=== PATIENT | male | born 1975 | race Caucasian/White ===

== ENCOUNTER 2018-01-19 17:32 | Emergency (ER) | payer MEDICAID ==
[~2018-01-19] VITALS: Ht 162.6 cm; Wt 80.7 kg
[2018-01-19 17:32] VITALS: BP 146/95
--- NOTE | 2018-01-19 17:43 | NUR ---
BBRA 97, PT WAS FOUND ASLEEP INSIDE HIS CAR IN THE MIDDLE OF THE TRAFFIC. BS-110. PT DENIES COMPLAINTS AT THIS TIME. H/O ESRD, DIALYSIS DUE TOMORROW. ASSISTED TO BED 14. PLACED ON CONT CARDIAC AND POX MONITORING. WILL CONT TO MONITOR
[2018-01-19] MEDS ORDERED: IV NS 0.9% 1,000 ML BAG IV ONE (18:00)
--- NOTE | 2018-01-19 18:11 | NUR ---
PER FESTUS HADDAD, ALL ORDERS WILL BE CANCELED.
== END 2018-01-19 18:15 | disposition home or self-care (01) ==
LOC: ER 17:33
DX: N18.9 Chronic kidney disease, unspecified (principal); R53.83 Other fatigue; Z86.19 Personal history of other infectious and parasitic diseases; Z88.0 Allergy status to penicillin; F10.10 Alcohol abuse, uncomplicated; F17.200 Nicotine dependence, unspecified, uncomplicated; Z99.2 Dependence on renal dialysis; Y90.9 Presence of alcohol in blood, level not specified
CPT/HCPCS: 82962; 93005; 99283; A4606; Z7610

== ENCOUNTER 2019-04-26 07:45 | Inpatient (IN) | payer MEDICAID ==
[~2019-04-26] VITALS: Ht 170.2 cm; Wt 104.3 kg
--- NOTE | 2019-04-26 08:05 | NUR ---
patient came in to the ER bib [id number], from dialysis center 40 mins left on his HD and had seizure. On 02 @ 2lpm via NC. breathing evenly and unlabored. kept comfortable, will continue to monitor accordingly.
--- NOTE | 2019-04-26 08:08 | NUR ---
seizure precaution initiated, padded side rails.
--- NOTE | 2019-04-26 08:08 | NUR ---
Wiring Inspector at bed side to draw blood.
--- NOTE | 2019-04-26 08:15 | NUR ---
Luzmaria todd in [facility] - 04/26/19 at 0815 by RUSS michel at bedside
--- NOTE | 2019-04-26 08:15 | NUR ---
mom at bedside
[2019-04-26 08:28] LABS: BASOPHILS # (AUTO) 0.1 /CMM (0.0-0.2); BASOPHILS % (AUTO) 0.5 % (0.0-2.0); HEMATOCRIT 30 % (39-51); HEMOGLOBIN 8.8 g/dL (13.5-17.5); LYMPHOCYTES # (AUTO) 1.2 /CMM (0.8-4.8); LYMPHOCYTES % (AUTO) 8.4 % (20.0-44.0); MEAN CORPUSCULAR HGB CONC 29 g/dl (31.0-36.0); MEAN CORPUSCULAR VOLUME 70 fL (80-96); MONOCYTES # (AUTO) 0.8 /CMM (0.1-1.30); MONOCYTES % (AUTO) 5.2 % (2.0-12.0); NEUTROPHILS # (AUTO) 12.3 /CMM (1.8-8.9); NEUTROPHILS % (AUTO) 84.9 % (43.0-81.0); PLATELET COUNT (AUTO) 262 /CMM (150-450); RED BLOOD CELL COUNT(AUTO) 4.31 MIL/uL (4.5-6.0); WHITE BLOOD COUNT (AUTO) 14.4 K/uL (4.3-11.0)
[2019-04-26 08:29] LABS: POTASSIUM 4.6 mmol/L (3.5-5.1)
[2019-04-26 08:30] LABS: CREATININE 7.8 mg/dL (0.6-1.3)
--- NOTE | 2019-04-26 08:38 | NUR ---
patient wheeled to ct scan
--- NOTE | 2019-04-26 08:43 | NUR ---
patient came back from ct
--- NOTE | 2019-04-26 10:20 | NUR ---
patient awake, in no distress, family at bedside, denies any pain at this time.
--- NOTE | 2019-04-26 10:34 | NUR ---
[facility] BED 111-1
--- NOTE | 2019-04-26 10:59 | NUR ---
report given to Soon charge out clerk nurse for hanna.
[2019-04-26] MEDS ORDERED: CALC667C6 PO (11:06)
[2019-04-26] MEDS ORDERED: BLOOD PRESSURE MED (11:06)
--- NOTE | 2019-04-26 11:06 | NUR ---
wheeled patient via gurney accompanied by RN and EMT in no distress.
--- NOTE | 2019-04-26 11:15 | NUR ---
RECEIVED PT FROM ER VIA GURNEY TO ROOM 111-2. PT ADMITTED TO MED SURG UNIT. PT AWAKE IN BED, ALERT AND ORIENTED X 3, ON 02 VIA 5L/MIN, SATURATING WELL, RESPIRATIONS EVEN AND UNLABORED, NO SIGNS OF RESPIRATORY DISTRESS NOTED. DENIES ANY SOB OR PAIN AT THIS MOMENT. CAPILLARY REFILL < 3 SECONDS, PT ABLE TO AMBULATE, AV SHUNT ON LEFT LOWER ARM. IV SITE ON RIGHT HAND G22 INTACT, PATENT, SECURED WITH CLEAN DRESSING AND HEP LOCK IN PLACE. FAMILY BY BEDSIDE- REPORTS THAT LAST FRIDAY AT DIALYSIS PT HAD A SEIZURE, NO HISTORY OF SEIZURES IN THE PAST. PT WAS TAKEN TO [facility] BUT LEFT AMA. TODAY AT DIALYSIS PT HAD A SECOND SEIZURE AND WAS TAKEN HERE. FAMILY ALSO REPORTS THAT PT HAS AN ACTIVE EAR INFECTION. VITALS UPON ADMISSION TO UNIT BP 164/93, HR 109, RR 20, O2 SAT 98%, TEMP 99.9. BED IN LOW POSITION, LOCKED, CALL LIGHT WITHIN REACH, SEIZURE PRECAUTIONS IN PLACE, INTRODUCED SELF TO PT AND DISCUSSED PLAN OF CARE. Addendum: 04/26/19 at 1340 by CHAPARRITA GLORIA RN received pt on simple face mask 6l/min
--- NOTE | 2019-04-26 11:36 | NUR ---
PT WEIGHTED ON BED SCALE, CURRENT WEIGHT 220 LBS. TOOK ADMISSION PHOTOS OF A SCAB ON RIGHT LEG.
[2019-04-26 11:37] VITALS: BP 167/68
--- NOTE | 2019-04-26 11:50 | NUR ---
PT PROVIDED PERSONAL MEDICAL HISTORY, HAD HEP C IN 2012, STATES HE RECEIVED TREATMENT FOR IT. PREVIOUS IV HEROIN USER, HAS BEEN SOBER FOR 1 YEAR AND ON METHADONE MAINTENANCE 60MG SUBLINGUAL DAILY X 1 YEAR. CURRENT SMOKER.
[2019-04-26 12:00] VITALS: BP 164/93
--- NOTE | 2019-04-26 12:11 | NUR ---
HEAD TO TOE ASSESSMENT COMPLETED, WHEEZES AUSCULTATED IN LEFT UPPER, RIGHT UPPER AND RIGHT LOWER LOB. CRACKLES AUSCULTATED IN LEFT LOWER LOBE. PT'S ADMITTING UNIT CHANGED TO TELEMETRY, PT PLACED ON TELE MONITOR- SINUS TACHY ON MONITOR HR 111.
[2019-04-26] MEDS ORDERED: METH10TA2 SL (12:29)
[2019-04-26] MEDS ORDERED: MAGNESIUM HYDROXIDE 30 ML UDC PO PRN (12:30)
[2019-04-26] MEDS ORDERED: Z GUARD REMEDY 2 OZ OINT TP PRN (12:30)
[2019-04-26] MEDS ORDERED: MAG HYDROX/AL HYDROX/SIMETH 30 ML UDC PO PRN (12:30)
[2019-04-26] MEDS ORDERED: LORAZEPAM INJ 2 MG/ML VIAL IV PRN (12:30)
[2019-04-26] MEDS ORDERED: ONDANSETRON HCL/PF 4 MG/2 ML VIAL IVP PRN (12:30)
[2019-04-26] MEDS ORDERED: ACETAMINOPHEN 325 MG TABLET PO PRN (12:30)
[2019-04-26] MEDS ORDERED: HYDROCODONE/APAP 5/325MG 1 EACH TABLET PO PRN (12:30)
[2019-04-26] MEDS ORDERED: ZOLPIDEM TARTRATE 5 MG TABLET PO PRN (12:30)
--- NOTE | 2019-04-26 14:31 | NUR ---
CALLED [facility] TO VERIFY/CONFIRM PT'S DAILY METHADONE DOSE [phone] CLINIC CLOSED, OPENS TOMORROW AT 05:45AM.
[2019-04-26 16:02] VITALS: BP 164/89
[2019-04-26] MEDS ORDERED: INFLUENZA VACCINE 2019-20 0.5 ML DISP.SYRIN IM ONE (17:00)
[2019-04-26] MEDS: CALCIUM ACETATE 667 MG TABLET PO SCH (17:12)
[2019-04-26 17:50] VITALS: BP 162/60
--- NOTE | 2019-04-26 18:44 | NUR ---
CHEMISTRY PHYSICS TEACHER CLOSING NOTE PT SLEEPING INTERMITTENTLY IN BED, ALERT AND ORIENTED X 3, ON FACE MASK 6L/MIN,SATURATING WELL, RESPIRATIONS EVEN, ACCESSORY MUSCLES USED AT TIMES WHILE PT IS SLEEPING, HOWEVER NO SIGNS OF RESPIRATORY DISTRESS NOTED. DENIES ANY SOB OR PAIN AT THIS MOMENT. IV SITE ON RIGHT HAND G22 INTACT, PATENT, SECURED WITH CLEAN DRESSING AND HEP LOCK IN PLACE. BED IN LOW POSITION, LOCKED, CALL LIGHT WITHIN REACH, SEIZURE PRECAUTIONS IN PLACE. PT VISIBLY PERSPIRING, SLIGHT TREMORS OBSERVED. ON TELE MONITOR- SINUS RHYTHM. WILL ENDORSE TO NOC SHIFT NURSE.
--- NOTE | 2019-04-26 19:16 | NUR ---
INSTRUMENT REPAIRER STEAM PLANT NOTES RECEIVED PT ON BED. A/OX 4. ON TELE MONITOR SR. ON FACE MASK 5LPM NO RESPIRATORY DISTRESS NOTED. IV ACCESS ON RIGHT HAND G22 SALINE LOCK. HEAD OF BED ELEVATED. SIDE RAILS UP. BED IN LOW AND LOCKED POSITION. BED ALARM ON. WILL MONITOR PT CLOSELY.
[2019-04-26 20:00] VITALS: BP 124/66
[2019-04-26] MEDS ORDERED: OFLOXACIN OTIC SOLN 5 ML BOTTLE EACH EAR SCH (20:00)
[2019-04-26] MEDS: CIPROFLOXACIN HCL 0.3% 5 ML BOTTLE OT SCH (20:23)
--- NOTE | 2019-04-26 20:34 | NUR ---
ASPHALT PAVING SUPERINTENDENT NOTES PT ON SEIZURE PRECAUTION, PADED SIDE RALES, BED IN LOW AND LOCKED POSITION.
[2019-04-27] VITALS: BP 155/95
[2019-04-27 04:00] VITALS: BP_SYST 132; BP_SYST 176; BP_DIAS 83; BP_DIAS 87
--- NOTE | 2019-04-27 04:50 | NUR ---
RECORDS TECH NOTES PAGED EPIC FOR HYPERTENSION. AWAITING CALL BACK.
[2019-04-27 05:30] VITALS: BP 158/89
--- NOTE | 2019-04-27 05:30 | NUR ---
STONE SETTER METAL OPTICAL FRAMES NOTES PAGED FILM NUMBERER FOR HTN, PER RICHARD WOLF HE WILL PUT ORDERS.
--- NOTE | 2019-04-27 06:11 | NUR ---
ELECTROPLATER HELPER NOTES NO ACUTE CHANGES NOTED DURING THE SHIFT. PROVIDED COMFORT AND SAFETY. NO EPISODE OF SEIZURE NOTED. WILL ENDORSE TO THE AM NURSE FOR CONTINUITY OF CARE.
[2019-04-27 07:11] LABS: BASOPHILS # (AUTO) 0.1 /CMM (0.0-0.2); BASOPHILS % (AUTO) 0.5 % (0.0-2.0); EOSINOPHILS % (AUTO) 2.9 % (0.0-6.0); HEMATOCRIT 27 % (39-51); LYMPHOCYTES # (AUTO) 1.6 /CMM (0.8-4.8); MEAN CORPUSCULAR HGB CONC 30 g/dl (31.0-36.0); MEAN CORPUSCULAR VOLUME 70 fL (80-96); MONOCYTES # (AUTO) 0.8 /CMM (0.1-1.30); MONOCYTES % (AUTO) 8.2 % (2.0-12.0); NEUTROPHILS % (AUTO) 72.4 % (43.0-81.0); PLATELET COUNT (AUTO) 216 /CMM (150-450); RED BLOOD CELL COUNT(AUTO) 3.84 MIL/uL (4.5-6.0); WHITE BLOOD COUNT (AUTO) 9.7 K/uL (4.3-11.0)
--- NOTE | 2019-04-27 07:48 | NUR ---
RN OPENING NOTES RECEIVED PATIENT AWAKE AND RESTING IN BED COMFORTABLY. HE IS AOX4, VERBAL, AND AMBULATORY. HE IS ON 5L OF OXYGEN VIA NC, TOLERATING WELL, NO S/SX OF RESP DISTRESS OR SOB. TELE MONITOR SHOWING SR. SKIN IS INTACT, PATIENT IS ON BEDREST. CHEST RISES AND FALLS EVENLY. HE IS ON RENAL DIET, TOLERATING WELL. RHAND 22 G IS PATENT AND INTACT. SAFETY MEASURES HAVE BEEN IMPLEMENTED, CALL LIGHT IS WITHIN REACH, BED IS IN LOWEST AND LOCKED POSITION, SIDE RAILS UP X2, WILL CONTINUE TO MONITOR FOR ANY CHANGES.
[2019-04-27 08:00] VITALS: BP 176/93
[2019-04-27 08:14] LABS: THYROID STIMULATING HORMONE 1.955 uIU/mL (0.358-3.74)
[2019-04-27] MEDS: CALCIUM ACETATE 667 MG TABLET PO SCH ×3 (08:15→17:12)
[2019-04-27] MEDS: AMLODIPINE BESYLATE 5 MG TABLET PO SCH (08:16)
[2019-04-27 08:20] LABS: EOSINOPHILS % (MANUAL) 5 % (0-4); LYMPHOCYTES % (MANUAL) 18 % (16-48); MONOCYTES % (MANUAL) 5 % (0-11.0); NEUTROPHILS % (MANUAL) 72 (42-76)
[2019-04-27 08:43] LABS: CALCIUM, SERUM 8.2 mg/dL (8.5-10.1); POTASSIUM 5.2 mmol/L (3.5-5.1)
[2019-04-27 08:47] LABS: CREATININE 10.7 mg/dL (0.6-1.3)
[2019-04-27] MEDS: CIPROFLOXACIN HCL 0.3% 5 ML BOTTLE OT SCH ×2 (09:00→21:00)
--- NOTE | 2019-04-27 09:00 | NUR ---
RN NOTES UNABLE TO ADMIN CIPROFLOXACIN EYE DROPS BECAUSE MEDICATION IS NOT AT BEDSIDE OR IN THE MED ROOM, SPOKE WITH PHARMACY AND AM WAITING FOR THEM TO SEND ANOTHER ONE. WILL CONTINUE TO MONITOR
[2019-04-27 09:02] LABS: MAGNESIUM 2.7 mg/dL (1.8-2.4)
[2019-04-27 09:04] LABS: PHOSPHORUS 9.3 mg/dL (2.5-4.9)
[2019-04-27] MEDS: METHADONE HCL 10 MG TABLET PO SCH (09:46)
--- NOTE | 2019-04-27 09:57 | NUR ---
RN NOTES CRITICAL PHOS LEVEL OF 9.3 REPORTED TO MARYANN LEMONS
[2019-04-27] MEDS ORDERED: SODIUM POLYSTYRENE SULFONATE 15 G/60 ML BOTTLE PO ONE (12:00)
--- NOTE | 2019-04-27 12:02 | NUR ---
WOUND CARE CONSULT: PT AMBULATING IN HALLWAY AND DENIES NEED FOR WOUND CONSULT. WILL SEE PRN. PER NURSING ASSESSMENT, DRY ABRASIONS ON RT LOWER LEG.
[2019-04-27 16:00] VITALS: BP 179/98
--- NOTE | 2019-04-27 16:10 | NUR ---
Line Tender Flakeboard consult requested by Dr. Bethea for Drug Abuse. The pt. is a 43 year old [place] Male who came in for by paramedics from his dialysis center after an apparent seizure, per EMR . Upon Line Tender Flakeboard consultation the pt. presented sitting on his bed and was receptive to speaking with [facility]. The patient was alert and oriented x 4 and made appropriate eye contact throughout interview. SW offered pt. Substance Abuse Referrals and Resources. However, the pt. declined stating, I am already receiving treatment at [facility] [[id number] [place] [address]; ] for the past year and I am on Methadone. SW Provided pt. with Disability Insurance Benefits application he requested. The pt. expressed gratitude. The pt. requested Kidney Transplant from [facility]. However, we do not offer those services. retail salesworker provided contact information for [facility] [place] and informed him he can call to request an appointment. Pt. was agreeable to plan. also provide the pt. with [facility] Referral Form and informed him that his Dialysis center: [facility] [[id number] [id number]; ] can refer him . Pt. was agreeable to plan. Per nurseLuca the pt. will be discharged possibly tomorrow 04/28/19.
[2019-04-27] MEDS ORDERED: CLONIDINE HCL 0.1 MG TABLET PO PRN (17:00)
[2019-04-27] MEDS ORDERED: CLONIDINE HCL 0.1 MG TABLET PO ONE (17:00)
--- NOTE | 2019-04-27 18:47 | NUR ---
RN CLOSING NOTES PATIENT IS RESTING COMFORTABLY IN BED AT THIS TIME. DENIES ANY PAIN, SOB, OR DISCOMFORT. NO ACUTE CHANGES OCCURRED THROUGHOUT THE SHIFT, VITAL SIGNS ARE STABLE, PT NEEDS HAVE BEEN MET. SAFETY MEASURES HAVE BEEN IMPLEMENTED, CALL LIGHT IS WITHIN REACH, BED IS IN LOWEST AND LOCKED POSITION, SIDE RAILS UP X2, WILL ENDORSE TO NIGHTSHIFT RN FOR CONTINUITY OF CARE.
--- NOTE | 2019-04-27 19:30 | NUR ---
RN NOTES, PATIENT IS IN BED AT THIS TIME, BREATHING EVEN NAD UNLABORED, NO SOB/ACUTE DISTRESS AT THIS TIME, NO IV ACCESS IN PLACED, WILL START ANOTHER ONE, SAFETY MEASURES IN PLACED WELL SEIZURE PRECAUTIONS, WITH BILATERAL 2 1/2 S/S OF THE BED PADDED, CALL LIGHT WITHIN REACH, BED LOCKED AND LOW POSITION, WILL CONTINUE TO MONITOR PATIENT CLOSELY.
[2019-04-27 20:00] VITALS: BP 161/87
[2019-04-28 04:00] VITALS: BP_SYST 156; BP_SYST 166; BP_DIAS 95; BP_DIAS 98
--- NOTE | 2019-04-28 06:50 | NUR ---
RN NOTES, NO SIGNIFICANT CHANGE IN CONDITION DURING THE NIGHT, BREATHING EVEN ND UNLABORED, NO SOB/ACUTE DISTRESS NOTED, WITH STABLE VS, NO EPISODES OF SEIZURES DURING THE NIGHT, WILL ENDORSE CONTINUITY OF CARE TO ONCOMING NURSE.
[2019-04-28 07:20] LABS: BASOPHILS # (AUTO) 0.1 /CMM (0.0-0.2); BASOPHILS % (AUTO) 1.2 % (0.0-2.0); EOSINOPHILS % (AUTO) 6.1 % (0.0-6.0); HEMATOCRIT 25 % (39-51); HEMOGLOBIN 7.6 g/dL (13.5-17.5); LYMPHOCYTES # (AUTO) 1.9 /CMM (0.8-4.8); LYMPHOCYTES % (AUTO) 22.9 % (20.0-44.0); MEAN CORPUSCULAR HGB CONC 30 g/dl (31.0-36.0); MEAN CORPUSCULAR VOLUME 70 fL (80-96); MONOCYTES # (AUTO) 0.7 /CMM (0.1-1.30); MONOCYTES % (AUTO) 7.9 % (2.0-12.0); NEUTROPHILS # (AUTO) 5.1 /CMM (1.8-8.9); NEUTROPHILS % (AUTO) 61.9 % (43.0-81.0); PLATELET COUNT (AUTO) 192 /CMM (150-450); RED BLOOD CELL COUNT(AUTO) 3.64 MIL/uL (4.5-6.0); WHITE BLOOD COUNT (AUTO) 8.3 K/uL (4.3-11.0)
[2019-04-28 07:27] LABS: CALCIUM, SERUM 8.2 mg/dL (8.5-10.1); MAGNESIUM 2.7 mg/dL (1.8-2.4); POTASSIUM 5.1 mmol/L (3.5-5.1)
[2019-04-28 07:35] LABS: CREATININE 12.6 mg/dL (0.6-1.3)
--- NOTE | 2019-04-28 07:35 | NUR ---
MS/RN NOTE THE PATIENT IS RECEIVED IN BED. PATIENT IS ALERT AND ORIENTED X4. DENIES PAIN AT THIS TIME. IN ROOM AIR AND DENIES SOB. RESPIRATION REGULAR AND UNLABORED. THE PATIENT IS IN NO APPARENT DISTRESS. PATIENT IS NOTED WITH LEFT ARM FISTULA. BED LOW AND LOCKED. SIDE RAILS UP X2. CALL LIGHT WITHIN REACH. WILL CONTINUE TO MONITOR.
[2019-04-28 07:36] LABS: PHOSPHORUS 9.5 mg/dL (2.5-4.9)
[2019-04-28 08:00] VITALS: BP 170/93
--- NOTE | 2019-04-28 08:00 | NUR ---
MS/RN NOTE DR PASTRANA IS MADE AWARE OF ABONORMAL LABS AND PER MD NO NEW ORDERS.
[2019-04-28] MEDS: CALCIUM ACETATE 667 MG TABLET PO SCH (08:21)
[2019-04-28 08:22] VITALS: BP 170/93
[2019-04-28] MEDS: AMLODIPINE BESYLATE 5 MG TABLET PO SCH (08:22)
[2019-04-28] MEDS: METHADONE HCL 10 MG TABLET PO SCH (08:23)
[2019-04-28] MEDS: CIPROFLOXACIN HCL 0.3% 5 ML BOTTLE OT SCH (08:36)
[2019-04-28] MEDS ORDERED: CIPR10DR LEFT EAR (12:07)
[2019-04-28] MEDS ORDERED: CLON0.1T14 PO (12:07)
--- NOTE | 2019-04-28 12:52 | NUR ---
MS/RN NOTE THE PATIENT IS ALERT AND ORIENTED X4. DENIES PAIN AT THIS TIME. IN ROOM AIR AND SATURATION IS AT 98%. PATIENT DENIES SOB. RESPIRATION REGULAR AND UNLABORED. THE PATIENT IS IN NO APPARENT DISTRESS. PATIENT REFUSED DISCHARGE SKIN ASSESSMENT DESPITE EXPLAINING RISKS AND BENEFITS MULTIPLE TIMES. THE PATIENT IS PROVIDED WITH DISCHARGE EDUCATION AND HE VERBALIZED UNDERSTANDING. IV REMOVED WITH MINIMAL BLEEDING, COVERED THE SITE WITH GAUZE. NO S/S INFECTION AT THE IV SITE NOTED. PATIENT IS PICKED UP BY FATHER YANN. PATIENT LEFT THE HOSPITAL IN STABLE CONDITION.
== END 2019-04-28 12:50 | disposition home or self-care (01) | DRG 53 ==
LOC: ER 07:48 → TELE1 11:17 → MEDSG1 04-27 10:33
PROVIDERS: ADMIT Student in an Organized Health Care Education/Training Program; ATTEND Nurse Practitioner Acute Care
PROC: 5A1D70Z Performance of Urinary Filtration, Intermittent, Less than 6 Hours Per Day (ICD-10-PCS; principal; 2019-04-28)
DX: R56.9 Unspecified convulsions (principal); N18.6 End stage renal disease; E87.8 Other disorders of electrolyte and fluid balance, not elsewhere classified; N25.0 Renal osteodystrophy; D50.9 Iron deficiency anemia, unspecified; F11.90 Opioid use, unspecified, uncomplicated; D72.829 Elevated white blood cell count, unspecified; H66.90 Otitis media, unspecified, unspecified ear; Z99.2 Dependence on renal dialysis; Z86.19 Personal history of other infectious and parasitic diseases; R40.2142 Coma scale, eyes open, spontaneous, at arrival to emergency department; R40.2362 Coma scale, best motor response, obeys commands, at arrival to emergency department; R40.2242 Coma scale, best verbal response, confused conversation, at arrival to emergency department
CPT/HCPCS: 36415; 70450-TC; 71045-TC; 80048-TC; 80061-TC; 83735-TC; 84100-TC; 84443-TC; 85025-TC; 86706; 87040-TC; 87081-TC; 87340; 90935-TC; 95819-TC; G0378; Q2036